=== PATIENT | male | born 1975 | race Hispanic/Latino ===

== ENCOUNTER 2016-10-20 12:29 | Emergency (ER) | payer OTHER ==
[~2016-10-20] VITALS: Ht 195.6 cm; Wt 131.5 kg
[~2016-10-20 12:29] MED LIST: CIPRO500 M1 PO; FLEXERIL10 MG PO; IBUPROFEN800 M1 PO; MOTRIN600 MG PO; PERCOCET 325 MG1 TA2 PO
--- NOTE | 2016-10-20 12:52 | ED CARDIAC/CP/PALPITATIONS ---
History of Present Illness General Chief Complaint: Chest Pain Stated Complaint: MID-STERNAL CHEST PAIN Source: patient, old records Exam Limitations: no limitations Vital Signs & Intake/Output Vital Signs & Intake/Output Vital Signs Date Time Temp Pulse Resp B/P B/P Pulse O2 O2 Flow FiO2 Mean Ox Delivery Rate 10/20 1600 98.4 69 18 137/84 97 Room Air 10/20 1321 123/81 10/20 1320 130/82 10/20 1232 97.9 91 16 163/103 97 Room Air Allergies Coded Allergies: NO KNOWN ALLERGIES (11/21/14) Reconcile Medications Pantoprazole Sodium (Protonix) 40 MG TABLET.DR 1 TAB PO DAILY gerd Varenicline Tartrate (Chantix) 0.5 MG (11)-1 MG (42) TAB.DS.PK 0 PO DAILY TOBACCO CESSATION Triage Note: 41 Y/0 MALE C/O R SIDED RIB AND MID STERNAL CHEST PAIN SINCE LAST NIGHT. STATES HE HAS HAD R SIDED RIB PAIN "FOR A WHILE" AND THEN LAST NIGHT WOKE FROM SLEEP DUE TO 2 EPISODES OF "STABBING" CHEST PAIN. DENIES OTHER COMPLAINTS TAKEN FOR EKG Triage Nurses Notes Reviewed? yes Onset: Abrupt Duration: hour(s): (11), better, gone now Timing: recent history Quality/Severity: moderate, sharp, stabbing Location: central Radiation: no radiation Activities at Onset: sleep Nitro Today/Relief: no nitro taken today Aspirin Today: no aspirin today Associated Symptoms: DENIES HPI: Is a 41-year-old male presents complaining of 2 episodes of brief sharp stabbing chest pain that awoke him from sleep starting around 2:00 in the morning last night. He states over the past few days he's had intermittent right-sided rib pain. He denies any known specific injury or trauma. There is no pain with inspiration no shortness of breath no abdominal pain nausea vomiting or diarrhea. There is no radiation of pain into his back or arms or jaw. He does not take any medicine on a regular basis has not taken anything for his pain. He denies pain at this time symptoms are not worse with exertion or change in position. He is a daily smoker and denies alcohol or drug use no family history of sudden cardiac disease Past History Travel History Traveled to [place] past 21 day No Medical History Any Pertinent Medical History? see below for history Neurological: NONE EENT: NONE Cardiovascular: NONE Respiratory: NONE Gastrointestinal: NONE Hepatic: NONE Renal: nephrolithiasis Musculoskeletal: chronic back pain Psychiatric: NONE Endocrine: NONE Blood Disorders: NONE Surgical History Surgical History: non-contributory Psychosocial History What is your primary language [place]dean Tobacco Use: Current Daily Use Daily Tobacco Use Amount/Type: => 5 Cigarettes daily Family History Hx Contributory? No Review of Systems Review of Systems Constitutional: Reports: see HPI. All Other Systems: Reviewed and Negative Comments Review of systems: See HPI, All other systems negative. Constitutional, no chills no fever, no malaise no weight loss HEENT: no sore throat no congestion Cardiovascular: chest pain , no palpitation Skin: no rashes, no change in skin Respiratory: No dyspnea no cough no sputum no hemoptysis GI: No nausea no vomiting, no diarrhea, no bloating/constipation : No dysuria Muscle skeletal: No joint pain, no joint swelling, no back pain, no neck pain, Neurologic: no headache Psych: No stress no depression,. Heme/endocrine: No bruising no bleeding Immunology: No lymphadenopathy Physical Exam Physical Exam General Appearance: well developed/nourished, no apparent distress, alert, awake Cardiovascular: regular rate/rhythm Comments: Well-developed well-nourished person in no acute distress HEENT: Normal EENT exam; PERRL, EOMI, HEAD is atraumatic. moist mucous membranes. Neck: Supple, normal range of motion Back: Nontender, no CVA tenderness. Full range of motion Cardiovascular: Regular rate and rhythms no murmurs rubs Respiratory: Chest tender.There were no bony deformities, no asymmetry. No respiratory distress. Patient speaking in full complete sentences. Breath sounds clear to auscultation bilaterally: NO W/R/R Abdomen: Soft, nontender nondistended, no appreciable organomegaly. Normal bowel sounds. No rebound/guarding, Extremity: No edema, full range of motion of extremities, normal and equal pulses bilaterally, 5 out of 5 strength noted to bilateral upper and lower extremities Neuro: Alert oriented x3, motor sensory normal. There were no obvious focal neurologic abnormalities. Skin: No appreciable rash on exposed skin, skin is warm and dry. Psych: Mood and affect is normal, memory and judgment is normal. Core Measures ACS in differential dx? Yes Severe Sepsis Present: No Septic Shock Present: No Progress Differential Diagnosis: AMI, aortic dissection, atrial fibrillation, CHF/pulm edema, costochondritis, musculoskeletal pain, myocarditis, pancreatitis, pericarditis, pneumonia, pneumothorax, pulmonary embolism, unstable angina, V- fib/V-Tach Plan of Care: Orders Procedure Date/time Status Telemetry/Manager Photo 10/20 1303 Active TROPONIN LEVEL 10/20 1303 Complete LIPASE 10/20 1303 Complete COMPREHENSIVE METABOLIC PANEL 10/20 1303 Complete CBC WITHOUT DIFFERENTIAL 10/20 1303 Complete AMYLASE 10/20 1303 Complete EKG 10/20 1233 Active Laboratory Tests 10/20/16 1305: Anion Gap 10, Estimated GFR > 60, BUN/Creatinine Ratio 15.7, Glucose 99, Calcium 9.3, Total Bilirubin 0.6, AST 22, ALT 54, Alkaline Phosphatase 137 H, Troponin I < 0.01, Total Protein 7.6, Albumin 4.6, Globulin 3.0, Albumin/Globulin Ratio 1.5, Amylase 52, Lipase 101, CBC w Diff NO MAN DIFF REQ, RBC 5.26, MCV 88.4, MCH 30.2, RDW 13.3, MPV 8.2, Gran % 54.7, Lymphocytes % 35.5, Monocytes % 6.8, Eosinophils % 2.7, Basophils % 0.3, Absolute Granulocytes 5.2, Absolute Lymphocytes 3.4, Absolute Monocytes 0.7 H, Absolute Eosinophils 0.3, Absolute Basophils 0, PUBS MCHC 34.2 Patient is declining any pain when offered labs ordered CAT scan ordered case discussed with Dr. cortez Repeat evaluation patient is again declining anything when offered however after speaking with the patient and will attempt a GI cocktail pending CAT scan and discussed with him at length all of his results I discussed with the patient at length all of their results-LAB AND CT RESULTS includingincidental finding of nodule. I had an extensive conversation regarding need for close follow up with their primary care physician this week as well as return precautions. I answered all of their questions, they feel comfortable with the plan and follow-up care. I discussed with the patient/family the medications that they will receive. I gave them signs and symptoms that could indicate an adverse reaction. I have advised them to limit their activities until they can see how they respond to the medication. (EDMUNDO CESAR) Diagnostic Imaging: Viewed by Me: CT Scan. Discussed w/RAD: CT Scan. Radiology Impression: PATIENT: JANA TATUM PRESENT AGE: 41 PATIENT ACCOUNT NO: [id number] : 76 LOCATION: [facility] ORDERING PHYSICIAN: EDMUNDO MCGARRY SERVICE DATE: 10/20/16 EXAM TYPE: CAT - CTA CHEST-PULMONARY EMBOLISM EXAMINATION: CT ANGIOGRAM OF THE CHEST WITH AND WITHOUT CONTRAST (CT PULMONARY ANGIOGRAM FOR PE) CLINICAL INFORMATION: Stabbing chest pain. Evaluate for pulmonary embolism. COMPARISON: None. TECHNIQUE: Prior to contrast administration, noncontrast localization images were obtained. Subsequently, multidetector volumetric imaging was performed from the thoracic inlet to below the diaphragms following the administration of 125 mL Optiray 350 intravenous contrast. No contrast reaction reported. Sagittal, coronal, and MIP oblique sagittal reformatted images were obtained on the CT workstation, uploaded to PACS, and reviewed. Total exam dose-length product 565 mGy-cm. FINDINGS: QUALITY OF STUDY/CONTRAST BOLUS: Adequate contrast opacification of the pulmonary arterial vasculature. PULMONARY ARTERIES: No evidence of pulmonary embolism to the level of the subsegmental pulmonary arteries. No large central pulmonary emboli. THORACIC AORTA: Normal caliber of the thoracic aorta. No centrally displaced intraluminal flaps to suggest aortic dissection. LUNG: Minimal dependent bibasilar atelectasis. No focal consolidation. Incidental note is made of a 6 mm nodule along the right major fissure (series 3, image 34). This may represent an intrafissural lymph node given its location. No suspicious masses. The central airways are patent, without endobronchial obstructing lesions. PLEURA: No pleural effusion or pneumothorax. MEDIASTINUM: Normal heart size. No pericardial effusion. No hilar or mediastinal lymphadenopathy. No evidence of septal bowing or right heart strain. CHEST WALL/AXILLA: No axillary or internal mammary lymphadenopathy. OSSEOUS STRUCTURES: No acute or suspicious osseous abnormality. UPPER ABDOMEN: Unremarkable. No reflux of contrast into the hepatic veins to suggest elevated right heart pressures. IMPRESSION: 1. Adequate contrast opacification of the pulmonary arterial vasculature, without evidence of pulmonary embolism. 2. An incidental 6 cm nodule along the right major fissure. This may represent an intrafissural lymph node given its location. Various management parameters for solitary pulmonary nodules are in the literature. According to the Fleischner Society, recommendations for pulmonary nodules are as follows: Nodule size 6-8 mm in LOW RISK PATIENTS: No follow up needed. Nodule size 6-8 mm in HIGH RISK PATIENTS: Optional follow-up chest CT in 12 months. DICTATED BY: GLENNA MORENO MD DATE/TIME DICTATED:10/20/161521 [employer] COACH:PRIYANK DATE/TIME TRANSCRIBED:10/20/161521 CONFIDENTIAL, DO NOT COPY WITHOUT APPROPRIATE AUTHORIZATION. <Electronically signed in Other Vendor System> SIGNED BY: GLENNA MORENO MD 10/20/16 1536 Initial ED EKG: NSR AT 70, NO ACUTE ST SEG CHANGES, NORMAL AXIS Departure Departure Time of Disposition: 010 Disposition: HOME OR SELF CARE Condition: Stable Clinical Impression Primary Impression: Atypical chest pain Secondary Impressions: Lung nodule Referrals: OPAL GREY,JAY JAY Sheehan PATIENT HAS NO PRIMARY CARE DR (PCP/Family) Additional Instructions: Protonix as directed. Tylenol as needed for pain Otto diet no fatty spicy greasy foods follow-up with medical consultant Dr. Smart. Return to the emergency room immediately if your symptoms worsen despite medication or have any other concerns. Departure Forms: Customer Survey General Discharge Information Prescriptions: Current Visit Scripts Pantoprazole Sodium (Protonix) 1 TAB PO DAILY #14 TAB Varenicline Tartrate (Chantix) 0 PO DAILY #1 PAC Critical Care Note Critical Care Note Critical Care Time: non-applicable
[2016-10-20 13:16] LABS: ABSOLUTE BASOPHIL COUNT 0 /CUMM (0.0-0.2); ABSOLUTE EOSINOPHIL COUNT 0.3 /CUMM (0.0-0.7); ABSOLUTE GRANULOCYTE CT 5.2 /CUMM (1.4-6.5); ABSOLUTE LYMPH COUNT 3.4 /CUMM (1.2-3.4); ABSOLUTE MONOCYTE COUNT 0.7 /CUMM (0.10-0.60); BASOPHIL % 0.3 % (0.0-2.0); EOSINOPHIL % 2.7 % (0-5); GRANULOCYTE % 54.7 % (42.2-75.2); HEMATOCRIT 46.5 % (42-52); MEAN CORPUSCULAR HGB 30.2 PG (27.0-31.0); MEAN CORPUSCULAR HGB CONC 34.2 G/DL (33.0-37.0); MEAN CORPUSCULAR VOLUME 88.4 FL (80.0-94.0); MEAN PLATELET VOLUME 8.2 FL (7.4-10.4); PLATELET COUNT 277 /CUMM (130-400); RBC DISTRIBUTION WIDTH 13.3 % (11.5-14.5); RED BLOOD CELL CT 5.26 /CUMM (4.70-6.10); WHITE BLOOD CELL COUNT 9.6 /CUMM (4.8-10.8)
--- NOTE | 2016-10-20 15:36 | CT SCAN REPORT ---
EXAMINATION: CT ANGIOGRAM OF THE CHEST WITH AND WITHOUT CONTRAST (CT PULMONARY ANGIOGRAM FOR PE) CLINICAL INFORMATION: Stabbing chest pain. Evaluate for pulmonary embolism. COMPARISON: None. TECHNIQUE: Prior to contrast administration, noncontrast localization images were obtained. Subsequently, multidetector volumetric imaging was performed from the thoracic inlet to below the diaphragms following the administration of 125 mL Optiray 350 intravenous contrast. No contrast reaction reported. Sagittal, coronal, and MIP oblique sagittal reformatted images were obtained on the CT workstation, uploaded to PACS, and reviewed. Total exam dose-length product 565 mGy-cm. FINDINGS: QUALITY OF STUDY/CONTRAST BOLUS: Adequate contrast opacification of the pulmonary arterial vasculature. PULMONARY ARTERIES: No evidence of pulmonary embolism to the level of the subsegmental pulmonary arteries. No large central pulmonary emboli. THORACIC AORTA: Normal caliber of the thoracic aorta. No centrally displaced intraluminal flaps to suggest aortic dissection. LUNG: Minimal dependent bibasilar atelectasis. No focal consolidation. Incidental note is made of a 6 mm nodule along the right major fissure (series 3, image 34). This may represent an intrafissural lymph node given its location. No suspicious masses. The central airways are patent, without endobronchial obstructing lesions. PLEURA: No pleural effusion or pneumothorax. MEDIASTINUM: Normal heart size. No pericardial effusion. No hilar or mediastinal lymphadenopathy. No evidence of septal bowing or right heart strain. CHEST WALL/AXILLA: No axillary or internal mammary lymphadenopathy. OSSEOUS STRUCTURES: No acute or suspicious osseous abnormality. UPPER ABDOMEN: Unremarkable. No reflux of contrast into the hepatic veins to suggest elevated right heart pressures. IMPRESSION: 1. Adequate contrast opacification of the pulmonary arterial vasculature, without evidence of pulmonary embolism. 2. An incidental 6 cm nodule along the right major fissure. This may represent an intrafissural lymph node given its location. Various management parameters for solitary pulmonary nodules are in the literature. According to the Fleischner Society, recommendations for pulmonary nodules are as follows: Nodule size 6-8 mm in LOW RISK PATIENTS: No follow up needed. Nodule size 6-8 mm in HIGH RISK PATIENTS: Optional follow-up chest CT in 12 months.
[2016-10-20] MEDS ORDERED: PROTONIX40 M3 PO (15:48)
[2016-10-20] MEDS ORDERED: CHANTIX1 EACH PO (15:48)
[2016-10-20 16:00] VITALS: BP 137/84
== END 2016-10-20 16:01 ==
LOC: ERH 12:29
PROVIDERS: Physician Assistant Medical
DX: R07.89 Other chest pain (principal); R91.1 Solitary pulmonary nodule
CPT/HCPCS: 93005; 93010

== ENCOUNTER 2016-11-14 10:37 | Emergency (ER) | payer OTHER ==
[~2016-11-14] VITALS: Ht 195.6 cm; Wt 129.3 kg
[~2016-11-14 10:37] MED LIST changes: +CHANTIX1 EACH PO; +PROTONIX40 M3 PO
--- NOTE | 2016-11-14 11:22 | ED GI/GU/ABDOMINAL COMPLAINT ---
History of Present Illness General Chief Complaint: Low Back Pain/Injury Stated Complaint: CHRONIC LOWER BACK PAIN Source: patient Exam Limitations: no limitations Vital Signs & Intake/Output Vital Signs & Intake/Output Vital Signs Date Time Temp Pulse Resp B/P B/P Pulse O2 O2 Flow FiO2 Mean Ox Delivery Rate 11/14 1607 96.5 74 18 141/96 97 Room Air 11/14 1240 98.4 79 18 134/89 99 Room Air 11/14 1041 97.4 84 18 135/90 100 Room Air ED Intake and Output 11/15 0000 11/14 1200 Intake Total Output Total Balance Patient 285 lb Weight Weight Reported by Patient Measurement Method Allergies Coded Allergies: NO KNOWN ALLERGIES (11/21/14) Reconcile Medications Cyclobenzaprine HCl 5 MG TABLET 1 TAB PO QPMP PRN muscle spasm Pantoprazole Sodium (Protonix) 40 MG TABLET.DR 1 TAB PO DAILY gerd Varenicline Tartrate (Chantix) 0.5 MG (11)-1 MG (42) TAB.DS.PK 0 PO DAILY TOBACCO CESSATION Triage Note: PT TO ED FOR EXACERBATION OF CHRONIC BACK PAIN. Triage Nurses Notes Reviewed? yes Onset: Gradual Duration: day(s): Timing: recent history Location: right testicle and right back Last Time You Were Sexual: greater than 2 months ago HPI: 41-year-old male presents to emergency department complaining of right testicular pain 3 days. Patient states that his pain has been constant and severe. He also complains of right-sided low back pain since yesterday described as constant sharp throbbing. He has a history of kidney stones however he states that this pain feels different. He has tried taking Tylenol for his pain which relieves his symptoms only for about 30 minutes and then his symptoms gradually increase again. He denies any fevers, chills, dysuria, hematuria, urinary frequency, discharge, skin changes. He is sexually active with his however no sexual activity for the past 4 months and he has had STD testing within 2 months. (KRISTA CUMMINGS PA-C) Past History Travel History Traveled to [place] past 21 day No Medical History Any Pertinent Medical History? see below for history Neurological: NONE EENT: NONE Cardiovascular: NONE Respiratory: NONE Gastrointestinal: NONE Hepatic: NONE Renal: nephrolithiasis Musculoskeletal: chronic back pain Psychiatric: NONE Endocrine: NONE Blood Disorders: NONE Surgical History Surgical History: non-contributory Psychosocial History What is your primary language Danish Tobacco Use: Current Daily Use Daily Tobacco Use Amount/Type: => 5 Cigarettes daily ETOH Use: occasional use Illicit Drug Use: marijuana Family History Hx Contributory? No (KRISTA CUMMINGS PA-C) Review of Systems Review of Systems Constitutional: Reports: no symptoms. EENTM: Reports: no symptoms. Respiratory: Reports: no symptoms. Cardiovascular: Reports: no symptoms. GI: Reports: no symptoms. Genitourinary: Reports: see HPI. Musculoskeletal: Reports: see HPI. Skin: Reports: no symptoms. Neurological/Psychological: Reports: no symptoms. Hematologic/Endocrine: Reports: no symptoms. Immunologic/Allergic: Reports: no symptoms. All Other Systems: Reviewed and Negative (KRISTA CUMMINGS PA-C) Physical Exam Physical Exam General Appearance: well developed/nourished, no apparent distress, alert, awake Head: atraumatic, normal appearance Eyes: Bilateral: normal appearance, EOMI. Ears, Nose, Throat, Mouth: hearing grossly normal Neck: normal inspection, supple, full range of motion Respiratory: normal breath sounds, no respiratory distress, lungs clear Cardiovascular: regular rate/rhythm Peripheral Pulses: 2+ femoral (R), 2+ femoral (L) Gastrointestinal: normal bowel sounds, soft, non-tender, no organomegaly Male Genitals: normal genitalia, no testicular tenderness Back: normal inspection, normal range of motion, no CVA tenderness, right lower back tenderness to deep palpation Extremities: normal range of motion Neurologic/Psych: awake, alert, oriented x 3 Skin: intact, normal color, warm/dry Core Measures ACS in differential dx? No Severe Sepsis Present: No Septic Shock Present: No (KRISTA CUMMINGS PA-C) Progress Differential Diagnosis: diverticulitis, epididymitis, orchitis, prostatitis, pyelonephritis, STD, testicular torsion, ureterolithiasis, urethritis, UTI/pyelo , nephrolithiasis Plan of Care: Orders Procedure Date/time Status COMPREHENSIVE METABOLIC PANEL 11/14 1146 Complete CBC WITHOUT DIFFERENTIAL 11/14 1146 Complete URINALYSIS 11/14 1120 Complete Laboratory Tests 11/14/16 1233: Anion Gap 11, Estimated GFR > 60, BUN/Creatinine Ratio 20.0, Glucose 109 H, Calcium 9.1, Total Bilirubin 0.5, AST 21, ALT 44, Alkaline Phosphatase 146 H, Total Protein 7.4, Albumin 4.3, Globulin 3.1, Albumin/Globulin Ratio 1.4, CBC w Diff NO MAN DIFF REQ, RBC 5.09, MCV 86.5, MCH 30.2, RDW 12.5, MPV 8.1, Gran % 61.1, Lymphocytes % 30.9, Monocytes % 5.9, Eosinophils % 1.7, Basophils % 0.4, Absolute Granulocytes 5.7, Absolute Lymphocytes 2.9, Absolute Monocytes 0.6, Absolute Eosinophils 0.2, Absolute Basophils 0, PUBS MCHC 34.9 11/14/16 1137: Urine Color YEL, Urine Clarity HAZY H, Urine pH 6.0, Ur Specific [place] >= 1.030, Urine Protein TRACE H, Urine Ketones NEG, Urine Nitrite NEG, Urine Bilirubin NEG, Urine Urobilinogen 0.2, Ur Leukocyte Esterase NEG, Ur Microscopic SEDIMENT EXAMINED, Urine RBC 1-3, Urine WBC 1-3 H, Ur Epithelial Cells RARE, Urine Bacteria FEW H, Urine Mucus MOD H, Urine Hemoglobin SMALL H, Urine Glucose NEG The patient is sitting comfortably in stretcher, he is in no acute distress, he is on his phone and watching TV. There were no acute findings on his testicular ultrasound or CT scan. The patient was given a urology referral for his testicular pain, there is a cyst present which was on previous scan as well. The patient was giving a course of muscle relaxer for his reproducible right- sided low back pain. The patient was discussed with Dr. Weems. The patient is in agreement with the plan of care. (EMILIANO MOLINA,KRISTA) Diagnostic Imaging: Viewed by Me: CT Scan, Ultrasound. Discussed w/RAD: CT Scan, Ultrasound. Radiology Impression: PATIENT: JANA TATUM PRESENT AGE: 41 PATIENT ACCOUNT NO: [id number] : 76 LOCATION: [facility] ORDERING PHYSICIAN: KRISTA CUMMINGS PA-C SERVICE DATE: 11/14/16 EXAM TYPE: US - US-TESTICULAR EXAMINATION: US SCROTUM CLINICAL INFORMATION: Testicular pain for 3 days. Clinical concern regarding torsion. Right low back pain COMPARISON: Portions of a previous study 12/09/15 TECHNIQUE: A sonogram of the scrotum was performed assessing marie-scale appearance and color Doppler flow. FINDINGS: RIGHT: Right testicle measures 4.3 x 2.4 x 3.7 cm, volume 27 mL. Previously the right testicle measured 4.8 x 2.5 x 3.9 cm. Previous estimated volume 33 mL. No focal abnormality of the right testicle. The contour is smooth. The echotexture is homogeneous. There is normal distribution of color signal throughout the right testicle. Arterial and venous wave forms were obtained from the right testicle. No significant right scrotal fluid. No peristalsing bowel. The right epididymal head appears within normal limits. LEFT: Left testicle measures 4.6 x 2.5 x 2.5 cm, volume 20 mL. Previously the left testicle measured 4.2 x 2.9 x 3.0 cm. Previous estimated volume 26 mL. No focal abnormality of the left testicle. The echotexture of the left testicle is homogeneous. There is normal distribution of color signal throughout the left testicle. Arterial and venous waveforms were obtained from the left testicle. No cystic and left scrotal fluid. There is a 0.7 cm cyst in the left epididymal head which may represent an epididymal head cyst or spermatocele. No peristalsing bowel in the left. IMPRESSION: Both testicles appear within normal limits. No suspicious mass. Normal distribution of symmetric color signal and arterial and venous waveforms were obtained from each side making torsion extremely unlikely Small unchanged left epididymal head cyst or spermatocele DICTATED BY: JENNIE WALTERS MD DATE/ TIME DICTATED:11/14/161308 LENS COATER:PRIYANK DATE/TIME TRANSCRIBED: 11/14/161308 CONFIDENTIAL, DO NOT COPY WITHOUT APPROPRIATE AUTHORIZATION. < Electronically signed in Other Vendor System> SIGNED BY: JENNIE WALTERS MD 11/14/16 1316, PATIENT: JANA TATUM PRESENT AGE: 41 PATIENT ACCOUNT NO: [id number] : 76 LOCATION: [facility] ORDERING PHYSICIAN: KRISTA CUMMINGS PA-C SERVICE DATE: 11/14/16 EXAM TYPE: CAT - CT ABD & PELVIS W/O IV CONTRAS EXAMINATION: CT ABDOMEN AND PELVIS WITHOUT CONTRAST CLINICAL INFORMATION: Right-sided back pain and right groin pain. Evaluate for kidney stone or pyelonephritis. COMPARISON: Portions of a previous CT which includes the chest and only a small portion of the upper abdomen 10/20/16 TECHNIQUE: Multidetector volumetric imaging was performed from the superior aspect of the liver through the pubic symphysis. Sagittal and coronal reformatted images were obtained on the technologist's workstation. DLP: 1375 mGy-cm FINDINGS: LUNG BASES: No suspicious abnormality in the visualized lower chest LIVER, GALLBLADDER, AND BILIARY TREE: No suspicious abnormality the liver. Diffuse fatty change. Minor sparing around the gallbladder fossa. There is no calcified gallstone. There is no biliary dilation. PANCREAS: Within normal limits SPLEEN: Normal ADRENAL GLANDS: Within normal limits KIDNEYS AND URETERS: There is no significant dilation of the urinary collecting system on either side. There is no urinary calculus. No suspicious mass. BLADDER: No suspicious abnormality GASTROINTESTINAL TRACT: There is no localized colonic wall thickening. No pericolonic fat stranding. The appendix is normal. There is no small bowel dilation. There is no abnormality the stomach. ABDOMINAL WALL: No significant hernia is appreciated. LYMPH NODES: There are no measurably enlarged abdominal or pelvic lymph nodes. There is no free peritoneal fluid. VASCULAR: There is no abdominal aortic aneurysm. 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 IMPRESSION: There is no etiology for right-sided back or groin pain. Specifically there is no urinary calculus. The appendix is normal DICTATED BY: JENNIE WALTERS MD DATE/TIME DICTATED:11/14/161414 LENS COATER:PRIYANK DATE/TIME TRANSCRIBED:11/14/161414 CONFIDENTIAL, DO NOT COPY WITHOUT APPROPRIATE AUTHORIZATION. <Electronically signed in Other Vendor System> SIGNED BY: JENNIE WALTERS MD 11/14/16 1429 Initial ED EKG: none (EMILIANO MOLINA,KRISTA) Departure Departure Disposition: HOME OR SELF CARE Condition: Stable Clinical Impression Primary Impression: Low back pain Referrals: PATIENT HAS NO PRIMARY CARE DR (PCP/Family) JENY BROOKS MD Additional Instructions: Follow-up with urologist, Dr. Brooks, call office to make an appointment for this week. Take Flexeril at night as needed for your low back pain. This medication can be sedating, Do not drive or drink alcohol while on this medication. Return with any worsening symptoms or concerns. Departure Forms: Customer Survey General Discharge Information Prescriptions: Current Visit Scripts Cyclobenzaprine HCl 1 TAB PO QPMP PRN muscle spasm #10 TAB (KRISTA CUMMINGS PA-C) PA/SPORTS LEADERSHIP INSTRUCTOR Co-Sign Statement Statement: ED Attending supervision documentation- I saw and evaluated the patient. I have also reviewed all the pertinent lab results and diagnostic results. I agree with the findings and the plan of care as documented in the PA's/SPORTS LEADERSHIP INSTRUCTOR's documentation. x I have reviewed the ED Record and agree with the PA's/SPORTS LEADERSHIP INSTRUCTOR's documentation. [] Additions or exceptions (if any) to the PAs/SPORTS LEADERSHIP INSTRUCTOR's note and plan are summarized below: [] (ARIEL GREY,KENZIE)
[2016-11-14 12:41] LABS: ABSOLUTE BASOPHIL COUNT 0 /CUMM (0.0-0.2); ABSOLUTE EOSINOPHIL COUNT 0.2 /CUMM (0.0-0.7); ABSOLUTE GRANULOCYTE CT 5.7 /CUMM (1.4-6.5); ABSOLUTE LYMPH COUNT 2.9 /CUMM (1.2-3.4); ABSOLUTE MONOCYTE COUNT 0.6 /CUMM (0.10-0.60); BASOPHIL % 0.4 % (0.0-2.0); EOSINOPHIL % 1.7 % (0-5); GRANULOCYTE % 61.1 % (42.2-75.2); MEAN CORPUSCULAR HGB 30.2 PG (27.0-31.0); MEAN CORPUSCULAR HGB CONC 34.9 G/DL (33.0-37.0); MEAN CORPUSCULAR VOLUME 86.5 FL (80.0-94.0); MEAN PLATELET VOLUME 8.1 FL (7.4-10.4); PLATELET COUNT 260 /CUMM (130-400); RBC DISTRIBUTION WIDTH 12.5 % (11.5-14.5); RED BLOOD CELL CT 5.09 /CUMM (4.70-6.10); WHITE BLOOD CELL COUNT 9.4 /CUMM (4.8-10.8)
--- NOTE | 2016-11-14 13:16 | ULTRASOUND REPORT ---
EXAMINATION: US SCROTUM CLINICAL INFORMATION: Testicular pain for 3 days. Clinical concern regarding torsion. Right low back pain COMPARISON: Portions of a previous study 12/09/15 TECHNIQUE: A sonogram of the scrotum was performed assessing marie-scale appearance and color Doppler flow. FINDINGS: RIGHT: Right testicle measures 4.3 x 2.4 x 3.7 cm, volume 27 mL. Previously the right testicle measured 4.8 x 2.5 x 3.9 cm. Previous estimated volume 33 mL. No focal abnormality of the right testicle. The contour is smooth. The echotexture is homogeneous. There is normal distribution of color signal throughout the right testicle. Arterial and venous wave forms were obtained from the right testicle. No significant right scrotal fluid. No peristalsing bowel. The right epididymal head appears within normal limits. LEFT: Left testicle measures 4.6 x 2.5 x 2.5 cm, volume 20 mL. Previously the left testicle measured 4.2 x 2.9 x 3.0 cm. Previous estimated volume 26 mL. No focal abnormality of the left testicle. The echotexture of the left testicle is homogeneous. There is normal distribution of color signal throughout the left testicle. Arterial and venous waveforms were obtained from the left testicle. No cystic and left scrotal fluid. There is a 0.7 cm cyst in the left epididymal head which may represent an epididymal head cyst or spermatocele. No peristalsing bowel in the left. IMPRESSION: Both testicles appear within normal limits. No suspicious mass. Normal distribution of symmetric color signal and arterial and venous waveforms were obtained from each side making torsion extremely unlikely Small unchanged left epididymal head cyst or spermatocele
--- NOTE | 2016-11-14 14:29 | CT SCAN REPORT ---
EXAMINATION: CT ABDOMEN AND PELVIS WITHOUT CONTRAST CLINICAL INFORMATION: Right-sided back pain and right groin pain. Evaluate for kidney stone or pyelonephritis. COMPARISON: Portions of a previous CT which includes the chest and only a small portion of the upper abdomen 10/20/16 TECHNIQUE: Multidetector volumetric imaging was performed from the superior aspect of the liver through the pubic symphysis. Sagittal and coronal reformatted images were obtained on the technologist's workstation. DLP: 1375 mGy-cm FINDINGS: LUNG BASES: No suspicious abnormality in the visualized lower chest LIVER, GALLBLADDER, AND BILIARY TREE: No suspicious abnormality the liver. Diffuse fatty change. Minor sparing around the gallbladder fossa. There is no calcified gallstone. There is no biliary dilation. PANCREAS: Within normal limits SPLEEN: Normal ADRENAL GLANDS: Within normal limits KIDNEYS AND URETERS: There is no significant dilation of the urinary collecting system on either side. There is no urinary calculus. No suspicious mass. BLADDER: No suspicious abnormality GASTROINTESTINAL TRACT: There is no localized colonic wall thickening. No pericolonic fat stranding. The appendix is normal. There is no small bowel dilation. There is no abnormality the stomach. ABDOMINAL WALL: No significant hernia is appreciated. LYMPH NODES: There are no measurably enlarged abdominal or pelvic lymph nodes. There is no free peritoneal fluid. VASCULAR: There is no abdominal aortic aneurysm. 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 IMPRESSION: There is no etiology for right-sided back or groin pain. Specifically there is no urinary calculus. The appendix is normal
[2016-11-14] MEDS ORDERED: CYCLOBENZAPRINE5 M2 PO (15:21)
[2016-11-14 16:07] VITALS: BP 141/96
== END 2016-11-14 16:10 ==
LOC: ERH 10:37
PROVIDERS: Physician Assistant
DX: M54.5 Low back pain (principal); N50.811 Right testicular pain
CPT/HCPCS: 74176; 81001; 96374; J1885

== ENCOUNTER 2017-05-31 12:37 | Observation (INO) | payer OTHER ==
[~2017-05-31] VITALS: Ht 195.6 cm; Wt 86.2 kg
[~2017-05-31 12:37] MED LIST changes: +CYCLOBENZAPRINE5 M2 PO
--- NOTE | 2017-05-31 14:04 | ED CARDIAC/CP/PALPITATIONS ---
History of Present Illness General Chief Complaint: Chest Pain Stated Complaint: CP X 1HR Source: patient Exam Limitations: no limitations Vital Signs & Intake/Output Vital Signs & Intake/Output Vital Signs Date Time Temp Pulse Resp B/P B/P Pulse O2 O2 Flow FiO2 Mean Ox Delivery Rate 05/31 1843 98.1 67 18 137/79 96 Room Air 05/31 1740 70 16 136/83 96 Room Air 05/31 1554 71 16 142/81 98 Room Air 05/31 1526 98.1 69 18 144/81 95 Room Air 05/31 1249 98.9 65 18 137/93 99 Room Air Allergies Coded Allergies: NO KNOWN ALLERGIES (11/21/14) Reconcile Medications No Known Home Medications Triage Note: PT TO ED FOR INTERMITTENT CHEST PAIN X 1 HOUR, STATING HE WAS WATCHING TV WHEN IT STARTED. PT REPORTING "MY L ARM FEELS FUNNY TOO" TAKEN IMMEDIATELY FROM [facility] RENTAL MANAGER DESK TO [facility] FOR EKG. Triage Nurses Notes Reviewed? yes Onset: Abrupt Duration: minute(s): (30) Timing: recent history Location: central Radiation: back HPI: 42-year-old male comes into the emergency room with complaints of chest pain that began about 30 minutes prior to arrival. Patient reports that he has had some chest pain issues in the past that he has attributed to be an acid reflux where he gets a burning sensation. He reports that he takes a Zantac and his symptoms go away. He reports that today he felt different. He felt a pressure and pain in his chest that felt different from his normal pain. [place] like there was someone squeezing. He has a history of smoking but no other medical problems that he is aware of. His father had an PR around the same age as he is currently. He denies any vomiting but has some associated shortness of breath. He says the pain feels about a 7 out of 10 at this moment. he did not take anything for the pain at home. (Mc Hussein) Past History Travel History Traveled to [place] past 21 day No Medical History Any Pertinent Medical History? see below for history Neurological: NONE EENT: NONE Cardiovascular: NONE Respiratory: NONE Gastrointestinal: NONE Hepatic: NONE Renal: nephrolithiasis Musculoskeletal: chronic back pain Psychiatric: NONE Endocrine: NONE Blood Disorders: NONE Cancer(s): NONE LOAD TALLIER/Reproductive: NONE Surgical History Surgical History: non-contributory Psychosocial History What is your primary language Georgian Tobacco Use: Current Daily Use Daily Tobacco Use Amount/Type: => 5 Cigarettes daily ETOH Use: occasional use Illicit Drug Use: marijuana Family History Hx Contributory? No (Mc Hussein) Review of Systems Review of Systems Constitutional: Reports: no symptoms. EENTM: Reports: no symptoms. Respiratory: Reports: see HPI. Cardiovascular: Reports: see HPI. GI: Reports: no symptoms. Genitourinary: Reports: no symptoms. Musculoskeletal: Reports: no symptoms. Skin: Reports: no symptoms. Neurological/Psychological: Reports: no symptoms. Hematologic/Endocrine: Reports: no symptoms. Immunologic/Allergic: Reports: no symptoms. All Other Systems: Reviewed and Negative (Mc Hussein) Physical Exam Physical Exam General Appearance: well developed/nourished, alert, awake Head: atraumatic Eyes: Bilateral: normal appearance, EOMI. Ears, Nose, Throat: normal ENT inspection, hearing grossly normal Neck: normal inspection Respiratory: normal breath sounds, no respiratory distress Cardiovascular: regular rate/rhythm Gastrointestinal: soft, non-tender Back: normal inspection Extremities: normal inspection Neurologic/Psych: awake, alert, oriented x 3, normal gait Skin: intact, normal color Core Measures ACS in differential dx? Yes CVA/TIA Diagnosis No Sepsis Present: No Sepsis Focused Exam Completed? No (Mc Hussein) Progress Differential Diagnosis: AMI, aortic dissection, atrial fibrillation, hyperkalemia, hyperthyroid, musculoskeletal pain, pancreatitis, pericarditis, pneumonia, pneumothorax, pulmonary embolism, unstable angina Plan of Care: Orders Procedure Date/time Status Heart Healthy Diet 06/[address] in observation 05/31 1850 Active Vital Signs 05/31 1850 Active Code Status 05/31 1850 Complete Code Status 05/31 1850 Active TROPONIN LEVEL 05/31 1710 Complete EKG 05/31 1710 Active Add-on Test (ER Only) 05/31 1418 Active D-DIMER 05/31 1410 Complete Telemetry/Winch Driver 05/31 1345 Active TROPONIN LEVEL 05/31 1345 Complete COMPREHENSIVE METABOLIC PANEL 05/31 1345 Complete CBC WITHOUT DIFFERENTIAL 05/31 1345 Complete EKG 05/31 1238 Active Laboratory Tests 05/31/17 1723: Troponin I < 0.01 05/31/17 1410: Anion Gap 15, Estimated GFR > 60, BUN/Creatinine Ratio 21.7, Glucose 101 H, Calcium 9.5, Total Bilirubin 0.7, AST 21, ALT 42, Alkaline Phosphatase 136 H, Troponin I < 0.01, Total Protein 7.5, Albumin 4.4, Globulin 3.1, Albumin/ Globulin Ratio 1.4, D-Dimer High Sensitivty < 200, CBC w Diff NO MAN DIFF REQ, RBC 5.44, MCV 88.5, MCH 29.9, RDW 13.1, MPV 8.5, Gran % 63.2, Lymphocytes % 25.7 , Monocytes % 8.1, Eosinophils % 2.4, Basophils % 0.6, Absolute Granulocytes 6.3 , Absolute Lymphocytes 2.6, Absolute Monocytes 0.8 H, Absolute Eosinophils 0.2, Absolute Basophils 0.1, PUBS MCHC 33.8 Diagnostic Imaging: Viewed by Me: Radiology Read. Discussed w/RAD: Radiology Read. Radiology Impression: PATIENT: JANA TATUM PRESENT AGE: 42 PATIENT ACCOUNT NO: [id number] : 76 LOCATION: [facility] ORDERING PHYSICIAN: Mc MCGARRY SERVICE DATE: 05/31/172518 EXAM TYPE : RAD - XRY-CHEST XRAY, TWO VIEWS EXAMINATION: XR CHEST CLINICAL INFORMATION: Chest pain COMPARISON: Chest x-ray December [address] chest October 2016. TECHNIQUE : 2 views of the chest were obtained. FINDINGS: No significant abnormality is noted involving the heart, lungs, mediastinum, bony thorax or soft tissues. IMPRESSION: Unremarkable examination. No change DICTATED BY: Kiran Mcbride MD DATE/TIME DICTATED:05/31/171405 CAD DESIGN ENGINEER:PRIYANK DATE/TIME TRANSCRIBED:05/31/171405 CONFIDENTIAL, DO NOT COPY WITHOUT APPROPRIATE AUTHORIZATION. <Electronically signed in Other Vendor System> SIGNED BY: Kiran Mcbride MD 05/31/17 1411 Initial ED EKG: normal sinus rhythm, rate (68), nonspecific ST T wave chg Prior EKG: unchanged (no obvious changes) (Lyle MCGARRY,Mc) Departure Departure Disposition: STILL A PATIENT Condition: Stable Clinical Impression Primary Impression: Unstable angina Referrals: Patient Has No Primary Care Dr (PCP/Family) Departure Forms: Customer Survey General Discharge Information Prescriptions: Current Visit Scripts No Known Home Medications Observation Note Spoke With: Enrique GREY PHD,Anthony Rey Physician Advisor Notified: CASEY JAQUEZ DO Place Patient In: Non-ED OBS Care Area Rationale for Observation: My rational for observation is as follows . Patient will require serial troponins. Cardiac telemetry. Cardiac consultation. High suspicion for possibly unstable angina type symptoms. Chest pain relieved with sublingual nitroglycerin. (Mc Hussein) Departure Comments I've seen and examined the patient and I agree with the PAs evaluation (Casey Jaquez DO) Critical Care Note Critical Care Note Critical Care Time: 30-74 min (35) (Mc Hussein)
--- NOTE | 2017-05-31 14:11 | RADIOLOGY REPORT ---
EXAMINATION: XR CHEST CLINICAL INFORMATION: Chest pain COMPARISON: Chest x-ray December [address] chest October 2016. TECHNIQUE: 2 views of the chest were obtained. FINDINGS: No significant abnormality is noted involving the heart, lungs, mediastinum, bony thorax or soft tissues. IMPRESSION: Unremarkable examination. No change
[2017-05-31 14:19] LABS: ABSOLUTE BASOPHIL COUNT 0.1 /CUMM (0.0-0.2); ABSOLUTE EOSINOPHIL COUNT 0.2 /CUMM (0.0-0.7); ABSOLUTE GRANULOCYTE CT 6.3 /CUMM (1.4-6.5); ABSOLUTE LYMPH COUNT 2.6 /CUMM (1.2-3.4); ABSOLUTE MONOCYTE COUNT 0.8 /CUMM (0.10-0.60); BASOPHIL % 0.6 % (0.0-2.0); EOSINOPHIL % 2.4 % (0-5); GRANULOCYTE % 63.2 % (42.2-75.2); HEMATOCRIT 48.1 % (42-52); MEAN CORPUSCULAR HGB 29.9 PG (27.0-31.0); MEAN CORPUSCULAR HGB CONC 33.8 G/DL (33.0-37.0); MEAN CORPUSCULAR VOLUME 88.5 FL (80.0-94.0); MEAN PLATELET VOLUME 8.5 FL (7.4-10.4); PLATELET COUNT 267 /CUMM (130-400); RBC DISTRIBUTION WIDTH 13.1 % (11.5-14.5); RED BLOOD CELL CT 5.44 /CUMM (4.70-6.10); WHITE BLOOD CELL COUNT 9.9 /CUMM (4.8-10.8)
--- NOTE | 2017-05-31 21:59 | History & Physical ---
Tayla Ramos MD 05/31/17 3299: General Information and HPI MD Statement: I have seen and personally examined JANA TATUM and documented this H&P. The patient is a 42 year old M who presented with a patient stated chief complaint of [chest pain]. Source of Information: patient, old records Exam Limitations: no limitations History of Present Illness: Patient is a 42-year-old male with history of repeated emergency room visits last one in March 2017 presents this admission with chief complaint of chest pain. Patient states that he has been experiencing intermittent chest pain that initially started 6 months prior to this admission. At that time he thought it was gastric in origin and has tried to modify his diet, and has been taking Zantac which helped relieve pain to a certain extent. However he does endorse chest pain that is not responding to the medication. Patient states that his most recent chest pain has started at 11 AM on the morning of his admission while patient was resting. Describes the pain as a squeezing pain located at the center and towards the left side of his chest lasting approximately 1.5 hours. Onset of pain associated with diaphoresis, dizziness, lightheadedness. Denies nausea, vomiting, shortness of breath, palpitations. Aggravated occasionally to a small extent with movement and with ingestion of food. Pain is unchanged with respiration. The time of the pain patient tried drinking a small amount of water but did not take any medications to relieve the pain. Patient states that the pain was an 8 out of 10 at its most severe and is currently 4 out of 10 after receiving nitroglycerin. Past medical history: Nephrolithiasis, chronic back pain Social history: Patient states he quit smoking 2-3 days prior to this admission, prior to this he was smoking approximately 1-1-1/2 packs per day for the past 20 years, patient denies alcohol use, states he has used marijuana last was 3 weeks prior to this admission however stopped as he felt it worsened the chest pain Family history significant for father ([place] in his 40s, hypertension) and mother ( diabetes) Allergies/Medications Allergies: Coded Allergies: NO KNOWN ALLERGIES (11/21/14) Home Med list Aspirin (Aspirin*) 81 MG TAB.CHEW 81 MG PO DAILY Heart Atorvastatin Calcium 40 MG TABLET 1 TAB PO DAILY Cholesterol Nitroglycerin (Nitroglycerin Patch) 0.2 MG/HOUR PATCH.TD24 0.2 MG TOP DAILY PRN CHEST PAIN 12 hours on, 12 hours off. 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 EENTM: Reports: no symptoms. Cardiovascular: Reports: see HPI. Respiratory: Reports: no symptoms. GI: Reports: no symptoms. Genitourinary: Reports: no symptoms. Musculoskeletal: Reports: no symptoms. Skin: Reports: no symptoms. Neurological/Psychological: Reports: anxiety. Hematologic/Endocrine: Reports: no symptoms. Immunologic/Allergic: Reports: no symptoms. Exam & Diagnostic Data Last 24 Hrs of Vital Signs/I&O Vital Signs Date Time Temp Pulse Resp B/P B/P Pulse O2 O2 Flow FiO2 Mean Ox Delivery Rate 06/01 0028 68 130/80 05/31 2204 97.0 64 16 142/88 96 Room Air 05/31 2156 96.2 60 18 135/86 96 Room Air 05/31 2028 98.2 67 18 134/82 94 Room Air 05/31 1843 98.1 67 18 137/79 96 Room Air 05/31 1740 70 16 136/83 96 Room Air 05/31 1554 71 16 142/81 98 Room Air 05/31 1526 98.1 69 18 144/81 95 Room Air 05/31 1249 98.9 65 18 137/93 99 Room Air Intake & Output 06/01 0800 06/01 0000 05/31 1600 Intake Total Output Total Balance Patient 190 lb 190 lb Weight Weight Reported by Patient Measurement Method Physical Exam General Appearance Alert, Oriented X3, Cooperative, No Acute Distress Skin Temp/Moisture Exam: Warm/Dry HEENT Atraumatic, PERRLA, EOMI, Mucous Membr. moist/pink Cardiovascular Regular Rate, Normal S1, Normal S2, No Murmurs Lungs Clear to Auscultation, Normal Air Movement Abdomen Normal Bowel Sounds, Soft, No Tenderness Neurological Normal Speech, Cranial Nerves 3-12 NL Extremities No Clubbing, No Cyanosis, No Edema, Normal Pulses, No Tenderness/ Swelling Vascular Normal Pulses, Pulses Symmetrical Last 24 Hrs of Labs/René: Laboratory Tests 05/31/17 1723: Troponin I < 0.01 05/31/17 1410: Anion Gap 15, Estimated GFR > 60, BUN/Creatinine Ratio 21.7, Glucose 101 H, Hemoglobin A1c Pending, Calcium 9.5, Total Bilirubin 0.7, AST 21, ALT 42, Alkaline Phosphatase 136 H, Troponin I < 0.01, Total Protein 7.5, Albumin 4.4, Globulin 3.1, Albumin/Globulin Ratio 1.4, Triglycerides 143, Cholesterol 205 H, LDL Cholesterol, Calc 145 H, HDL Cholesterol 32 L, Cholesterol/HDL Ratio 7 H, D-Dimer High Sensitivty < 200, CBC w Diff NO MAN DIFF REQ, RBC 5.44, MCV 88.5, MCH 29.9, RDW 13.1, MPV 8.5, Gran % 63.2, Lymphocytes % 25.7, Monocytes % 8.1, Eosinophils % 2.4, Basophils % 0.6, Absolute Granulocytes 6.3, Absolute Lymphocytes 2.6, Absolute Monocytes 0.8 H, Absolute Eosinophils 0.2, Absolute Basophils 0.1, PUBS MCHC 33.8 Assessment/Plan Assessment: Patient is a 42-year-old male with past medical history significant for recurrent chest pain and family history with father having an [place] in his 40s presenting this admission with atypical chest pain that is somewhat responsive to nitroglycerin with no EKG changes and negative troponins 2. Patient has a FERCHO score of 2 giving him a risk of 8% risk of all cause mortality, new [place] or severe recurrent ischemia requiring revascularization. Patient's pain is also associated with ingestion of food and has been relieved at times with zantac. Patient will be placed in observation on the telemetry floor for management of the followin. Atypical chest pain - r/o ACS. Other causes to consider are GI which is also a likely possiblity as patient has pain occurring with ingestion of food which has been relieved with zantac (ranitidine) in the past. Other causes included respiratory causes, such as pulmonary embolism (less likely as patient is not hypoxic and is currently in normal sinus rhythm) and pneumonia (also not likely as cxr is normal with no leukocytosis and pt is afebrile), musculoskeletal ( however pain is nonreproducible on physical examination and is minimally affected by movement) or psychiatric secondary to anxiety. Monitor on telemetry Serial EKG and troponins to rule out ACS Lipid profile Hemoglobin A1c Cardiology consult in the a.m. Obtain an echo to evaluate for wall motion abnormalities Started on low-dose beta angelia Aspirin 325 mg given, continue aspirin 81 mg daily Nitroglycerin patch for pain If patient remains stable consider outpatient treadmill stress test DVT prophylaxis: Lovenox Diet: Heart healthy Code: Full code As Ranked By This Provider Problem List: 1. Atypical chest pain Core Measures/Misc (02/04) Acute Coronary Syndrome ACS Diagnosis: No Congestive Heart Failure Congestive Heart Failure Diagnosis No Cerebrovascular Accident CVA/TIA Diagnosis: No VTE (View Protocol) VTE Risk Factors Age>40 No Mechanical VTE Prophylaxis d/t N/A MechProphylax Ordered No VTE Pharm Prophylaxis d/t NA PharmProphylax ordered Sepsis (View protocol) Sepsis Present: No RashaunRose 05/31/17 2209: Resident Review Statement Resident Statement: examined this patient, discussed with sports apparel internship, agreed with [employer] app[employer] internship, discussed with family, reviewed EMR data (avail), discussed with nursing , discussed with case mgmt, reviewed images, amended to note Other Findings: This is a 42-year-old obese gentleman without any significant past medical history presented at the emergency room complaining of chest pain. He works at [employer] and lift heavy objects everyday, but other than that he follows a very sedantry life style. Reportadely, for the past 6 months he had multiple ED visits (latest one March 2017) for mostly self-limited episodes of chest pain; 3-4 out of 10, not radiating to back not radiating to arms and general number not associated with nausea, vomiting, lightheadedness, palpitation, shortness of breath. This a.m. patient developed a sudden retrosternal, crushing and a stabbing chest pain,with intensity of 8 out of 10; radiating to left arm and accompanied with temporary dizziness and shortness of breath, and feeling sweaty and clammy; patient denies any palpitation, feeling nauseous, vomiting. According to patient was reproducible (stretching his left arm with trigger the pain) and pleuritic ( deep inspiration will trigger the pain). he denies any URI syptoms, cough and sputum production, fever and shaking chils, trauma. Recent travel recent sick contact. In the emergency department, pain resolved, serial troponins and EKGs were negative. While he was in the emergency department pain returns (same characteristics much less severe) received nitroglycerin sublingual which resolved the pain partially (by 30%) Social history: 30 PPD; family history: [place] in his father at age of early 40s, his mother had hypertension and diabetes. ROS: + funny feeling on his left ribs (lower lateral part of his chest); denies palpitation, chest pain, shortness of breath, feeling nauseous. VSS. Physical exam: GA: WNL, HEET: No JVD, mucous membranes are moist; heart: S1-S2, no S4, no pericardial Rub no murmur, slight tenderness to touch on left lower anterior aspect of the chest, outreaching by his left arm cause chest pain; lungs are clear; abdomen is soft no tenderness; extremities: Peripheral pulses 2 + and symmetric no edema. Pertinent data Status troponin at 2 PM less than 0.01>> troponin at 5:30 PM less than 0.01 Alkaline phosphatase 136 BUN 13 and creatinine 0.6 Sodium 146 EKG Normal sinus rate and rhythm Normal axis Seems to have repolarization defect V2 to V6 and inferior leads Asessment and plan This is a 42-year-old gentleman with multiple risk factors for coronary artery disease (family history, smoking, physical inactivity and obesity) was admitted for atypical chest pain. List of active issues #1 atypical chest pain with FERCHO score 2(risk of recurrent ischemia or [place] within 7 days 8.3%) List of differential diagnosis: ACS, PE (low probability: wells SCORE, negative d-dimer), costochondritis, pericarditis (no recent viral infection no EKG changes; might have resolved) #2 mild dehydration #3 elevated alkaline phosphatase possible gallbladder origin Plan * Admit to telemetry for continuous heart monitoring under Dr. Nunez service * Trending troponin and EKG to rule out ACS * Nitrate 0.4 mg sublingual as needed for chest pain * Heart healthy diet * Start antianginal and anti-ischemia medication if patient became symptomatic or develop ACS. * Check lipid panel and HbA1c * Add-on GGT obtain abdominal ultrasound is GGT was elevated Proper appearing pathway DVT prophylaxis-Lovenox 40 units subcutaneous daily Full code
[2017-06-01 00:28] VITALS: BP 130/80
[2017-06-01 06:00] VITALS: BP 124/78
--- NOTE | 2017-06-01 07:36 | PN- Housestaff ---
Subjective Follow-up For: Chest pain Tele-Events Since Last Visit: NSR 60-80 Subjective: Patient presented last night. Notes that he has had chest pain intermittently for the past year or so. Chest pain is usually located on left side, pressure, with no radiation. Associated with meals and burping, but no N/V. Sometimes relived by ranitidine. Not associated with exertion or shortness of breath. Otherwise, not other complaints. Review of Systems Constitutional: Reports: no symptoms. EENTM: Reports: no symptoms. Cardiovascular: Reports: see HPI. Respiratory: Reports: no symptoms. Gastrointestinal: Reports: see HPI. Genitourinary: Reports: no symptoms. Musculoskeletal: Reports: no symptoms. Skin: Reports: no symptoms. Neurological/Psychological: Reports: no symptoms. Hematologic/Endocrine: Reports: no symptoms. Immunologic/Allergic: Reports: no symptoms. Objective Last 24 Hrs of Vital Signs/I&O Vital Signs Date Time Temp Pulse Resp B/P B/P Pulse O2 O2 Flow FiO2 Mean Ox Delivery Rate 06/01 0600 98.0 69 18 124/78 93 06/01 0028 68 130/80 05/31 2204 97.0 64 16 142/88 96 Room Air 05/31 2156 96.2 60 18 135/86 96 Room Air 05/31 2028 98.2 67 18 134/82 94 Room Air 05/31 1843 98.1 67 18 137/79 96 Room Air 05/31 1740 70 16 136/83 96 Room Air 05/31 1554 71 16 142/81 98 Room Air 05/31 1526 98.1 69 18 144/81 95 Room Air 05/31 1249 98.9 65 18 137/93 99 Room Air Intake & Output 06/01 0800 06/01 0000 05/31 1600 Intake Total 200 Output Total Balance 200 Intake, Oral 200 Patient 190 lb 190 lb Weight Weight Reported by Patient Measurement Method Physical Exam General Appearance: Alert, Oriented X3, Cooperative, No Acute Distress Skin: No Rashes Cardiovascular: Regular Rate, Normal S1, Normal S2 Lungs: Clear to Auscultation Abdomen: Normal Bowel Sounds, Soft, No Tenderness Extremities: No Edema Current Medications: Current Medications Sig/Chanda Start time Last Medication Dose Route Stop Time Status Admin Acetaminophen 650 MG Q6P PRN 05/31 2315 AC PO Aspirin 81 MG DAILY 06/01 1000 AC PO Aspirin 0 .STK-MED ONE 05/31 1424 DC PO Aspirin 325 MG ONCE ONE 05/31 1415 DC 05/31 PO 05/31 1416 1422 Enoxaparin Sodium 40 MG DAILY 06/01 1000 AC SC Hydrocodone Bitart/ 1 TAB Q6P PRN 05/31 2315 AC Acetaminophen PO Metoprolol Tartrate 6.25 MG BID 06/01 99 DC PO Nicotine 14 MG DAILY 06/01 1000 AC TOP Nitroglycerin 0.2 MG DAILY PRN 06/01 010 AC 06/01 TOP 0645 Nitroglycerin 0.4 MG Q 5 MINUTES X 3 DO.. 05/31 231 AC 06/01 SL 0034 Nitroglycerin 0.4 MG ONCE ONE 05/31 1445 DC 05/31 SL 05/31 1446 1455 Nitroglycerin 0 .STK-MED ONE 05/31 1424 DC SL Nitroglycerin 0.4 MG ONCE ONE 05/31 1415 DC 05/31 SL 05/31 1416 1422 Oxycodone/ 2 TAB Q6P PRN 05/31 2315 AC Acetaminophen PO Last 24 Hrs of Lab/René Results Last 24 Hrs of Labs/Mics: Laboratory Tests 06/01/17 0028: GGT 24, Troponin I < 0.01 05/31/17 2309: Hemoglobin A1c Cancelled, Triglycerides Cancelled, Cholesterol Cancelled, LDL Cholesterol, Calc Cancelled, HDL Cholesterol Cancelled, Cholesterol/HDL Ratio Cancelled 05/31/17 1723: Troponin I < 0.01 05/31/17 1410: Anion Gap 15, Estimated GFR > 60, BUN/Creatinine Ratio 21.7, Glucose 101 H, Hemoglobin A1c Pending, Calcium 9.5, Total Bilirubin 0.7, AST 21, ALT 42, Alkaline Phosphatase 136 H, Troponin I < 0.01, Total Protein 7.5, Albumin 4.4, Globulin 3.1, Albumin/Globulin Ratio 1.4, Triglycerides 143, Cholesterol 205 H, LDL Cholesterol, Calc 145 H, HDL Cholesterol 32 L, Cholesterol/HDL Ratio 7 H, D-Dimer High Sensitivty < 200, CBC w Diff NO MAN DIFF REQ, RBC 5.44, MCV 88.5, MCH 29.9, RDW 13.1, MPV 8.5, Gran % 63.2, Lymphocytes % 25.7, Monocytes % 8.1, Eosinophils % 2.4, Basophils % 0.6, Absolute Granulocytes 6.3, Absolute Lymphocytes 2.6, Absolute Monocytes 0.8 H, Absolute Eosinophils 0.2, Absolute Basophils 0.1, PUBS MCHC 33.8 Assessment/Plan Assessment: Patient is a 42-year-old male with past medical history significant for recurrent chest pain and family history with father having an [place] in his 40s who presented with chest pain. Problem list: 1. Chest pain syndrome #Chest pain syndrome: The patient's description of his chest pain most resembles GERD given that it is postprandial, not associated with exertion, and mostly relieved by ranitidine. He has tried a proton pump inhibitor in the past with good effect but didn't take it for more than 10 days. EKG and troponins 3 were negative. Hemoglobin A1c 5.8. Cholesterol 173, LDL 115, HDL 25. He may benefit from a statin. -Appreciate Dr. Nunez recommendations -TTE -Omeprazole -Aspirin -Nitroglycerin when necessary chest pain -Calcium carbonate when necessary heartburn DVT prophylaxis with enoxaparin Heart healthy diet Full code Problem List: 1. Chest pain, unspecified Pain Ratin Pain Location: chest Pain Goal: Remain pain free Pain Plan: see a/p Tomorrow's Labs & Rationales: bep
[2017-06-01] MEDS ORDERED: OMEPRAZOLE20 M2 PO (13:47)
[2017-06-01] MEDS ORDERED: ASPIRIN81 M4 PO (13:47)
[2017-06-01] MEDS ORDERED: NITROGLYCERIN1 EAC3 TOP (13:47)
[2017-06-01] MEDS ORDERED: ATORVASTATIN CA40 M1 PO (13:47)
--- NOTE | 2017-06-01 13:48 | Patient Discharge Instructions ---
Discharge Instructions General Discharge Information You were seen/treated for: Chest pain Watch for these problems: Chest pain, fever, shortness of breath Special Instructions: Please take all medications as directed. Please follow-up with cardiology for outpatient stress test. Please follow-up with GI. Diet Continue normal diet: Yes Activity Full Activity/No Limits: Yes Acute Coronary Syndrome Inclusion Criteria At DC or during hospital stay patient has or had the following: ACS DIAGNOSIS No Discharge Core Measures Meds if any: Prescribed or Continued at Discharge Meds if any: NOT Prescribed or Continued at Discharge Congestive Heart Failure Inclusion Criteria At DC or during hospital stay patient has or had the following: CHF DIAGNOSIS No Discharge Core Measures Meds if any: Prescribed or Continued at Discharge Meds if any: NOT Prescribed or Continued at Discharge Cerebrovascular accident Inclusion Criteria At DC or during hospital stay patient has or had the following: CVA/TIA Diagnosis No Discharge Core Measures Meds if any: Prescribed or Continued at Discharge Meds if any: NOT Prescribed or Continued at Discharge Venous thromboembolism Inclusion Criteria VTE Diagnosis No VTE Type NONE VTE Confirmed by (Test) NONE Discharge Core Measures - Per Current guidelines, there needs to be overlap - treatment for the first 5 days of Warfarin therapy. - If discharged on Warfarin prior to 5 days of - overlap therapy, the patient will need to be - assessed for post discharge needs including - *Post discharge parental anticoagulation - *Warfarin and/or parental anticoagulation education - *Follow up date to check INR post discharge At least 5 days overlap therapy as Inpatient No Meds if any: Prescribed or Continued at Discharge Note: Overlap Therapy is Warfarin and Anticoagulant Meds if any: NOT Prescribed or Continued at Discharge
[2017-06-01 14:36] VITALS: BP 124/86
--- NOTE | 2017-06-01 22:08 | Cons- Cardiology ---
General Information and HPI Consulting Request Date of Consult: 06/01/17 Requested By: Enrique GREY PHD,Anthony Rey History of Present Illness: This patient is a 42 year old male with a family history of premature coronary artery disease who has noted intermittent chest discomfort for months. The discomfort is a moderate chest pressure that on rare occasions radiates toward his left arm. It is associated with diaphoresis and lightheadedness. He denies shortness of breath at his current level of activity and is without palpitations. There is no consistent exertional component to this pain. He has been treated with antacids for a supposed GI discofort with only partial relief. It was recommended that this patient undergo a GI evaluation but the patient never pursued this recommendation. Allergies/Medications Allergies: Coded Allergies: NO KNOWN ALLERGIES (11/21/14) Home Med List: Aspirin (Aspirin*) 81 MG TAB.CHEW 81 MG PO DAILY Heart Atorvastatin Calcium 40 MG TABLET 1 TAB PO DAILY Cholesterol Nitroglycerin (Nitroglycerin Patch) 0.2 MG/HOUR PATCH.TD24 0.2 MG TOP DAILY PRN CHEST PAIN 12 hours on, 12 hours off. Omeprazole 20 MG CAPSULE.DR 40 MG PO DAILY AC GERD Review of Systems Review of Systems: A review of systems is unremarkable. 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 Surgical History Surgical History: non-contributory Psychosocial History Smoking Status: Current Some Day Smoker ETOH Use: occasional use Illicit Drug Use: marijuana Exam & Diagnostic Data Vital Signs and I&O Vital Signs Date Time Temp Pulse Resp B/P B/P Pulse O2 O2 Flow FiO2 Mean Ox Delivery Rate 06/01 1436 97.7 70 18 124/86 93 Room Air 06/01 0600 98.0 69 18 124/78 93 06/01 0028 68 130/80 05/31 2204 97.0 64 16 142/88 96 Room Air Intake & Output 06/01 1600 06/01 0800 06/01 0000 05/31 1600 05/31 0800 05/31 0000 Intake Total 600 200 Output Total Balance 600 200 Intake, Oral 600 200 Patient 190 lb 190 lb Weight Weight Reported by Patient Measurement Method Physical Exam: General: WD/WN male in NAD; alert and oriented x 3 HEENT: NC/AT, PERRL, EOMI Neck: no JVD, no carotid bruit heart: RRR w/o murmur Lungs: clear bilaterally ABdomen: soft, NT, +ve bowel sounds Extremities: no edema Assessment/Plan Assessment/Plan * This patient has somewhat atypical chest discomfort. Due to his risk factors I have a modearate suspicion of myocardial ischemia. This discomfort is longstanding and not particularly increasing in frequency, intensity or duration to suggest unstable angina. We will discharge this patient on aspirin, NTG and beta angelia and will risk stratify the patient with a stress test as an outpatient. Continue Omeprazole. Consult Acknowledgment - Thank you for your consult request.
--- NOTE | 2017-06-02 08:18 | ECHOCARDIOGRAM REPORT ---
JANA TATUM Age: 42 : 1975 Gender: M Exam Date: 06/01/2017 08:54 Exam Location: [address] Ht (in): 77 Wt (lb): 290 BSA: 2.71 BP: 124 / 78 Ordering Physician: Rose Rodney MD Referring Physician: Rose Rodney MD Technologist: Sebastian Stevenson [facility] Room Number: 189-1 Indications: Chest Pain Rhythm: Sinus Technical Quality: good FINDINGS Left Ventricle Normal left ventricular size with mild left ventricular hypertrophy. Normal systolic function with no obvious regional wall motion abnormalities. Normal left ventricular diastolic filling pattern for age. The ejection fraction is visually estimated at 70%. Right Ventricle The right ventricle is normal in size and function. Right Atrium The right atrium is normal in size. Left Atrium The left atrium is normal in size. The interatrial septum is intact. Mitral Valve The mitral valve is normal in structure and function. There is no mitral regurgitation. Aortic Valve Structurally normal aortic valve without significant sclerosis or stenosis. There is no aortic regurgitation. Tricuspid Valve The tricuspid valve is normal in structure and function. There is trace tricuspid regurgitation. Pulmonary artery systolic pressure is normal. Pulmonic Valve Structurally normal pulmonic valve. There is no pulmonic regurgitation. Pericardium Normal pericardium without effusion. No pleural effusion. Great Vessels Normal aortic root dimension. The aortic arch and great vessels are well seen and are normal. CONCLUSIONS 1. Normal EF of 70%. 2. Mild left ventricular hypertrophy. 3. Trace tricuspid regurgitation. Anthony Nunez M.D. (Electronically Signed) Final Date: 02 June 2017 08:18 MEASUREMENTS (Male / Female) Normal Values 2D ECHO LV Diastolic Diameter PLAX 5.2 cm 4.2 - 5.9 / 3.9 - 5.3 cm LV Systolic Diameter PLAX 2.6 cm 2.1 - 4.0 cm LV Fractional Shortening PLAX 50.0 % 25 - 46 % LV Ejection Fraction 2D Teich 81.0 % IVS Diastolic Thickness 1.3 cm LVPW Diastolic Thickness 1.2 cm LV Relative Wall Thickness 0.5 RV Internal Dim ED PLAX 3.2 cm 1.9 - 3.8 cm LVOT Diameter 2.2 cm Aortic Root Diameter 2.9 cm LA Systolic Diameter LX 3.7 cm 3.0 - 4.0 / 2.7 - 3.8 cm LA Volume 50.0 cm 18 - 58 / 22 - 52 cm Ascending Aorta Diameter 3.2 cm DOPPLER AV Peak Velocity 160.0 cm/s AV Peak Gradient 10.2 mmHg AV Mean Velocity 102.0 cm/s AV Mean Gradient 5.0 mmHg AV Velocity Time Integral 33.4 cm LVOT Peak Velocity 111.0 cm/s LVOT Peak Gradient 4.9 mmHg LVOT Mean Velocity 63.5 cm/s LVOT Mean Gradient 2.0 mmHg LVOT Velocity Time Integral 23.9 cm LVOT Stroke Volume 90.9 cm AV Area Cont Eq vti 2.7 cm AV Area Cont Eq pk 2.6 cm MV Peak Velocity 99.3 cm/s MV Peak Gradient 3.9 mmHg MV Mean Velocity 47.8 cm/s MV Mean Gradient 1.0 mmHg Mitral E Point Velocity 82.4 cm/s Mitral A Point Velocity 50.3 cm/s Mitral E to A Ratio 1.6 MV PHT Velocity 106.0 cm/s MV Deceleration Greenlee 533.0 cm/s MV Pressure Half Time 59.7 ms MV Area PHT 3.7 cm MV Deceleration Time 197.0 ms TR Peak Velocity 286.0 cm/s TR Peak Gradient 32.7 mmHg Right Atrial Pressure 5.0 mmHg Pulmonary Artery Systolic Pressu 37.7 mmHg Right Ventricular Systolic Press 37.7 mmHg PV Peak Velocity 88.2 cm/s PV Peak Gradient 3.1 mmHg PV Mean Velocity 60.3 cm/s PV Mean Gradient 2.0 mmHg PV Velocity Time Integral 20.9 cm LV E' Lateral Velocity 11.0 cm/s Mitral E to LV E' Lateral Ratio 7.5 LV E' Septal Velocity 9.2 cm/s Mitral E to LV E' Septal Ratio 9.0
== END 2017-06-01 14:38 ==
LOC: ERH 12:37 → ERHI 18:50 → 1NO 18:50 → ENRESERV 21:41 → ENTRNSPT 22:12 → 1NO 22:25 → CMPTRNSPT 22:32 → 1NO 06-01 14:38
PROVIDERS: Physician Assistant Medical; Student in an Organized Health Care Education/Training Program
DX: R07.9 Chest pain, unspecified (principal); Z79.82 Long term (current) use of aspirin; I51.7 Cardiomegaly
CPT/HCPCS: 6020; 36415; 71046; 82436; 93005; 93010; 93306; G0378; J1650; J3490